=== PATIENT | female | born 1990 | race Caucasian/White ===

== ENCOUNTER 2018-05-11 16:05 | Outpatient (REF) | payer OTHER, SELFPAY ==
[2018-05-11 18:04] LABS: Cholesterol 200 mg/dL (50-200); HDL Cholesterol 43 mg/dL (40-60); LDL CHOLESTEROL 132 mg/dL (<100); Triglyceride 137 mg/dL (30-150)
== END 2018-05-11 16:25 ==
LOC: NCHCN 16:05
PROVIDERS: Visit Provider Nurse Practitioner Family
DX: K59.00 Constipation, unspecified (principal); N94.6 Dysmenorrhea, unspecified; E78.2 Mixed hyperlipidemia; Z00.00 Encounter for general adult medical examination without abnormal findings
CPT/HCPCS: 80061; 83721

== ENCOUNTER 2018-05-31 14:21 | Outpatient (CLI) | payer OTHER, SELFPAY | END 2018-05-31 14:41 | PROVIDERS: PCP Nurse Practitioner Family; Visit Provider Nurse Practitioner Family | DX: N92.6 Irregular menstruation, unspecified (principal) | CPT/HCPCS: 36415; 84443 ==

== ENCOUNTER 2018-05-31 17:39 | Outpatient (REF) | payer OTHER, SELFPAY ==
[2018-06-04 14:35] LABS: Chlamydia Result Negative; GC Result Negative; Specimen Description CERVIX
== END 2018-05-31 17:59 ==
LOC: LBN 17:39
PROVIDERS: PCP Nurse Practitioner Family; Visit Provider Nurse Practitioner Family
DX: Z11.3 Encounter for screening for infections with a predominantly sexual mode of transmission (principal)
CPT/HCPCS: 87491; 87591

== ENCOUNTER 2018-07-04 01:19 | Outpatient (CLI) | payer OTHER, SELFPAY ==
--- NOTE | 2018-07-04 12:34 | DI.US_ITS ---
SYMPTOMS/DIAGNOSIS: IRREGULAR BLEEDING PELVIC ULTRASOUND: A transabdominal and transvaginal examination was carried out the uterus measures 6.1 cm in length, 3.0 cm in height and 5.2 cm in width with an endometrial stripe thickness of 3.0 mm. The right ovary measures 2.2 x 1.8 x 1.8 cm. Follicular cysts are noted. The left ovary measures 1.7 x 1.1 x 2.1 cm and also contains follicular cysts. There is no evidence of free pelvic fluid. SUMMARY: The examination is within normal limits.
== END 2018-07-04 01:39 ==
PROVIDERS: PCP Nurse Practitioner Family; Visit Provider Nurse Practitioner Family
DX: N92.6 Irregular menstruation, unspecified (principal); N83.01 Follicular cyst of right ovary; N83.02 Follicular cyst of left ovary
CPT/HCPCS: 76830; 76856

== ENCOUNTER 2019-03-08 16:34 | Outpatient (REF) | payer BC, SELFPAY ==
[2019-03-11 12:15] LABS: Lyme Ab w Rflx to Lyme Confirm Negative
== END 2019-03-08 16:54 ==
LOC: NCHCN 16:34
PROVIDERS: PCP Nurse Practitioner Family; Visit Provider Nurse Practitioner Family
DX: M79.10 Myalgia, unspecified site (principal)
CPT/HCPCS: 86618

== ENCOUNTER 2019-06-06 16:32 | Outpatient (REF) | payer BC, SELFPAY ==
--- NOTE | 2019-06-06 15:30 | PAPFT_PTH ---
PATIENT: Libby Calvillo LOC: [facility]N U#:[id number] AGE/SX: 29/F ROOM: RE06/06/[address]: Tere Pete : 1990 BED: DIS: 06/06/2019 SPEC #: [id number] RECD: 06/06/19 18:07 STATUS: CHELI REParmjit #: [id number] LIZ: 06/06/19 15:[address]: Tere Pete DEPT: [facility] Cytology RECD BY: Haley Montoya ENTERED: 06/06/19 18:08 SP TYPE: PAPFT OTHR DR: Marilia Hodge Tissues: 1 - CX/ENDOCX FOR PAP SMEARS Procedures: PAP THIN PREP/[facility] Screening HPV DNA PROBE Comments: [id number]
== END 2019-06-06 16:52 ==
LOC: NCHCN 16:32
PROVIDERS: PCP Nurse Practitioner Family; Visit Provider Nurse Practitioner Family
DX: Z00.00 Encounter for general adult medical examination without abnormal findings (principal); Z12.4 Encounter for screening for malignant neoplasm of cervix; Z11.51 Encounter for screening for human papillomavirus (HPV)
CPT/HCPCS: 88142; 87624

== ENCOUNTER 2020-09-30 18:31 | Outpatient (REF) | payer OTHER, SELFPAY ==
[2020-10-02 15:03] LABS: Chlamydia Result Negative (Negative); GC Result Negative (Negative)
== END 2020-09-30 18:51 ==
LOC: LBN 18:31
PROVIDERS: PCP Nurse Practitioner Family; Visit Provider Nurse Practitioner Women's Health
DX: Z11.3 Encounter for screening for infections with a predominantly sexual mode of transmission (principal)
CPT/HCPCS: 87491; 87591

== ENCOUNTER 2020-12-24 04:05 | Outpatient (CLI) | payer OTHER, SELFPAY ==
[2020-12-24 09:05] LABS: Lithium 0.5 mmol/l (0.6-1.2)
[2020-12-24 09:08] LABS: Cholesterol 200 mg/dL (<200)
[2020-12-24 09:20] LABS: CREATININE 1.1 mg/dL (0.55-1.02); Estimated GFR 57.93 (mL/min/1.73m2); FREE T4 1.05 ng/dL (0.76-1.46); TSH 2.68 uIU/mL (0.36-3.74)
== END 2020-12-24 04:06 | disposition home or self-care (01) ==
LOC: LBO 04:05
PROVIDERS: PCP Nurse Practitioner Family; Visit Provider Psychiatry & Neurology Psychiatry
DX: E03.9 Hypothyroidism, unspecified (principal); Z79.899 Other long term (current) drug therapy
CPT/HCPCS: 36415; 80178; 82465; 82565; 84439; 84443

== ENCOUNTER 2021-10-06 15:58 | Outpatient (REF) | payer BC, SELFPAY ==
--- NOTE | 2021-10-06 15:45 | PAPFT_PTH ---
PATIENT: Libby Calvillo LOC: KIT U#:[id number] AGE/SX: 31/F ROOM: RE10/06/[address]: Melody Hanna NP : 1990 BED: DIS: 10/06/2021 SPEC #: [id number] RECD: 10/06/21 18:25 STATUS: CHELI REParmjit #: [id number] LIZ: 10/06/21 15:[address]: Melody Hanna NP DEPT: [facility] Cytology RECD BY: Haley Montoya ENTERED: 10/06/21 18:25 SP TYPE: PAPFT OTHR DR: Marilia Hodge Tissues: 1 - CX/ENDOCX FOR PAP SMEARS Procedures: PAP THIN PREP/[facility] Screening HPV DNA PROBE Comments: [id number]
== END 2021-10-06 15:59 | disposition home or self-care (01) ==
LOC: LBN 15:58
PROVIDERS: PCP Nurse Practitioner Family; Visit Provider Nurse Practitioner Women's Health
DX: Z12.4 Encounter for screening for malignant neoplasm of cervix (principal); Z11.51 Encounter for screening for human papillomavirus (HPV); R87.810 Cervical high risk human papillomavirus (HPV) DNA test positive; R87.612 Low grade squamous intraepithelial lesion on cytologic smear of cervix (LGSIL)
CPT/HCPCS: 88142; 87624

== ENCOUNTER 2021-11-18 12:01 | Outpatient (REF) | payer BC, SELFPAY ==
--- NOTE | 2021-11-18 11:45 | ENDO_PTH ---
PATIENT: Libby Calvillo LOC: KIT U#:[id number] AGE/SX: 31/F ROOM: RE11/18/[address]: Shannan Mott : 1990 BED: DIS: 11/18/2021 SPEC #: [id number] RECD: 11/18/21 13:01 STATUS: CHELI REParmjit #: [id number] LIZ: 11/18/21 11:[address]: Shannan Mott DEPT: Surgical Specimen RECD BY: Haley Montoya ENTERED: 11/18/21 13:02 SP TYPE: Endo OTHR DR: Marilia Hodge Tissues: 1 - ENDOCERVICAL BX/CURRETTE 2 - CERVICAL BIOPSY Procedures: GROSS AND MICRO LEVEL 4 Comments: [id number]
== END 2021-11-18 12:02 | disposition home or self-care (01) ==
LOC: LBN 12:01
PROVIDERS: PCP Nurse Practitioner Family; Visit Provider Obstetrics & Gynecology Gynecology
DX: R87.612 Low grade squamous intraepithelial lesion on cytologic smear of cervix (LGSIL) (principal)
CPT/HCPCS: 88305

== ENCOUNTER 2022-10-18 18:30 | Outpatient (CLI) | payer BC, SELFPAY ==
[2022-10-18 16:52] LABS: Lithium 0.4 mmol/l (0.6-1.2)
[2022-10-18 17:29] LABS: CREATININE 0.9 mg/dL (0.55-1.02); Estimated GFR 86.57 (mL/min/1.73m2); FREE T4 0.93 ng/dL (0.76-1.46); TSH 3.51 uIU/mL (0.36-3.74)
== END 2022-10-18 18:31 | disposition home or self-care (01) ==
LOC: LBO 18:31
PROVIDERS: PCP Nurse Practitioner Family; Visit Provider Psychiatry & Neurology Psychiatry
DX: Z79.899 Other long term (current) drug therapy (principal); Z51.81 Encounter for therapeutic drug level monitoring; E03.9 Hypothyroidism, unspecified; F32.89 Other specified depressive episodes
CPT/HCPCS: 36415; 80178; 82565; 84439; 84443

== ENCOUNTER 2022-12-20 16:09 | Outpatient (REF) | payer BC, SELFPAY ==
--- NOTE | 2022-12-20 15:45 | PAPFT_PTH ---
PATIENT: Libby Calvillo LOC: KIT U#:[id number] AGE/SX: 32/F ROOM: RE12/20/[address]: Melody Hanna NP : 1990 BED: DIS: 12/20/2022 SPEC #: [id number] RECD: 12/20/22 18:08 STATUS: CHELI REQ #: [id number] LIZ: 12/20/22 15:[address]: Melody Hanna NP DEPT: [facility] Cytology RECD BY: Haley Montoya ENTERED: 12/20/22 18:08 SP TYPE: PAPFT OTHR DR: Marilia Hodge Tissues: 1 - CX/ENDOCX FOR PAP SMEARS Procedures: PAP THIN PREP/[facility] Screening HPV DNA PROBE Comments: [id number] (CHLAMYDIA/GC)
[2022-12-21 15:10] LABS: Chlamydia Result Negative (Negative); GC Result Negative (Negative)
== END 2022-12-20 16:10 | disposition home or self-care (01) ==
LOC: LBN 16:09
PROVIDERS: PCP Nurse Practitioner Family; Visit Provider Nurse Practitioner Women's Health
DX: N76.0 Acute vaginitis (principal); Z11.3 Encounter for screening for infections with a predominantly sexual mode of transmission; Z12.4 Encounter for screening for malignant neoplasm of cervix; Z11.51 Encounter for screening for human papillomavirus (HPV); Z87.42 Personal history of other diseases of the female genital tract
CPT/HCPCS: 87491; 87591; 88142; 87480; 87510; 87624; 87660